=== PATIENT | female | born 1995 | race Caucasian/White ===

== ENCOUNTER 2016-09-01 13:14 | Emergency (ER) | payer OTHER ==
--- NOTE | 2016-09-01 14:15 | ED Physician Documentation ---
Lower Extremity Problem - HISTORIAN Historian: patient - HPI Stated Complaint: LEFT KNEE PAIN Chief Complaint: Lower Extremity Injury Location of Injury: L knee Onset: days ago Timing: still present Recent Injury: No Severity: mild Quality: pain, swelling Exacerbated By: walking, movement Relieved By: rest Further Comments: yes (Patient states that she has started to have some pain in her left knee over the last several days. Has started to have some swelling. No clicking or popping noted. Patient states pain feels like it is under the knee cap.) - ROS CONST: no problems - PAST HX Past History: other (SVT with s/p ablation therapy, HELP syndrome) Surgeries/Procedures: none Immunizations: referred to PCP Allergies/Adverse Reactions: Allergies Allergy/AdvReac Type Severity Reaction Status Date / Time No Known Allergies Allergy Verified 09/01/16 13:24 Home Medications: Ambulatory Orders Medication Instructions Recorded [id number] Estr/Ethin Estra 1 each PO QDAY 11/08/12 [Seasonique 0.15-0.03-0.01 Tab] - SOCIAL HX Smoking History: non-smoker Alcohol Use: rarely Drug Use: none - FAMILY HX Family History: none - VITAL SIGNS Vital Signs: Vital Signs Temp Pulse Resp BP Pulse Ox 70 16 116/72 98 09/01/16 13:25 09/01/16 13:25 09/01/16 13:25 09/01/16 13:25 - REVIEWED ASSESSMENTS Nursing Assessment Reviewed: Yes Vitals Reviewed: Yes Lower Extremity Problem - EXAM General Appearance: mild distress Hips: bilateral hip: non-tender, normal inspection, normal range of motion, no evidence of injury Legs: bilateral: non-tender, normal inspection, normal range of motion, no evidence of injury Knees: right: non-tender, normal inspection, normal range of motion, no evidence of injury, left: soft tissue tenderness (lateral aspect), swelling ( mild), N/A: bone tenderness (none), deformity (none), ecchymosis (none) Ankle: bilateral: non-tender, normal inspection, normal range of motion, no evidence of injury Neuro/Tendon: normal sensation, normal motor functions, no evidence tendon injury, other (medial, lataeral and cruciate lig intact and normal) RESPIRATORY: no resp distress, chest non-tender, breath sounds normal. No: wheezes, rales, rhonchi CVS: reg rate & rhythm, heart sounds normal, equal pulses NEURO/PSYCH: oriented X3, mood/affect nml, cognition normal SKIN: warm/dry, normal color Discharge Clincal Impression: Tendonitis of knee, left Referrals: Michael Mora MD [Primary Care Provider] - 2 Days Additional Instructions: Continue to use warm/cool compress to the knee as directed. Wear straight knee immobilizer for the next 305 days. Do exercises as directed. Take Aleve 1-2 tablets twice a day or Ibuprofen 3 tablets every 6 hours as needed for pain/ inflammation. If symptoms do not improve to follow-up with your primary care provider. Home Medications: Ambulatory Orders [id number] Estr/Ethin Estra [Seasonique 0.15-0.03-0.01 Tab] 1 each PO QDAY Condition: Stable Disposition: 01 HOME, SELF-CARE Decision to Admit: NO Date of Decison to Admit: 09/01/16 Decision Time: 14:23
[2016-09-01 14:41] VITALS: BP 115/74
== END 2016-09-01 14:35 | disposition home or self-care (01) ==
LOC: ED 13:14
DX: M76.9 Unspecified enthesopathy, lower limb, excluding foot (principal)
CPT/HCPCS: 99283